=== PATIENT | male | born 1945 | race Caucasian/White ===

== ENCOUNTER 2019-04-08 06:33 | Inpatient (IN) | payer MEDICARE, OTHER ==
[2019-04-08] MEDS ORDERED: Albuterol/Ipratropium 3.0-0.5 MG/3 ML Neb Soln NEB ONE (06:55)
[2019-04-08 07:25] LABS: ANION GAP 17.1
[2019-04-08] MEDS ORDERED: methylPREDNISolone Sodium Succinate 125 MG/2 ML SDV IVPUSH ONE (07:25)
--- NOTE | 2019-04-08 07:33 | EDM.PDOC ---
ED HPI GENERAL MEDICAL PROBLEM - General Chief Complaint: Chest Pain Stated Complaint: CANT BREATHE Time Seen by Provider: 04/08/19 07:00 Source of Information: Reports: Patient, RN, RN Notes Reviewed History Limitations: Reports: No Limitations - History of Present Illness INITIAL COMMENTS - FREE TEXT/NARRATIVE: Pt presents to ER by POV with c/o progressively worsening shortness of breath with occasionally productive cough with thick white to yellow sputum. Pt states he felt feverish yesterday, but not currently. Pt is in [facility] from [place]. He is unsure of the specifics of his past medical history and has no idea of what medications he takes. Hx of multiple myeloma. Onset: Gradual Duration: Constant Location: Reports: Chest Severity: Moderate Improves with: Reports: None Worsens with: Reports: Other (Exertion) Associated Symptoms: Reports: No Other Symptoms Chest Pain Score (Numeric/FACES): 8 - Related Data Allergies Allergy/AdvReac Type Severity Reaction Status Date / Time No Known Allergies Allergy Verified 04/08/19 06:37 Past Medical History HEENT History: Reports: Cataract Cardiovascular History: Reports: None Respiratory History: Reports: COPD Genitourinary History: Reports: None Musculoskeletal History: Reports: None Neurological History: Reports: None Psychiatric History: Reports: None Endocrine/Metabolic History: Reports: Diabetes, Type II, Obesity/BMI 30+ Hematologic History: Reports: None Immunologic History: Reports: None Oncologic (Cancer) History: Reports: Other (See Below) Other Oncologic History: multiple melanoma Dermatologic History: Reports: Melanoma - Infectious Disease History Infectious Disease History: Reports: None - Past Surgical History Head Surgeries/Procedures: Reports: None GI Surgical History: Reports: Hernia, Abdominal Social & Family History - Family History Family Medical History: Noncontributory - Tobacco Use Smoking Status *Q: Former Smoker Used Tobacco, but Quit: Yes Month/Year Tobacco Last Used: 2008 - Caffeine Use Caffeine Use: Reports: Soda - Recreational Drug Use Recreational Drug Use: No - Living Situation & Occupation Occupation: Retired ED ROS GENERAL - Review of Systems Review Of Systems: ROS reveals no pertinent complaints other than HPI. ED EXAM, GENERAL - Physical Exam Exam: See Below Exam Limited By: No Limitations General Appearance: Alert, No Apparent Distress, Obese, Other (Chronically ill appearing) Eye Exam: Bilateral Eye: Normal Inspection Nose: Normal Inspection, Normal Mucosa, No Blood Throat/Mouth: Normal Inspection, Normal Lips, Normal Teeth, Normal Gums, Normal Oropharynx, Normal Voice, No Airway Compromise Head: Atraumatic, Normocephalic Neck: Normal Inspection, Supple, Non-Tender, Full Range of Motion Respiratory/Chest: No Respiratory Distress, No Accessory Muscle Use, Decreased Breath Sounds, Crackles, Wheezing. No: Rales, Rhonchi, Stridor Cardiovascular: Regular Rate, Rhythm, Tachycardia GI/Abdominal: Normal Bowel Sounds, Soft, Non-Tender, No Distention, Other ( Benign obese abdomen) Back Exam: Full Range of Motion, Other (Subacute appearing contusion at Rt thoracic back). No: CVA Tenderness (L), CVA Tenderness (R) Extremities: Normal Inspection, Normal Range of Motion, Non-Tender, Normal Capillary Refill, No Pedal Edema Neurological: Alert, Oriented, CN II-XII Intact, Normal Cognition, No Motor/ Sensory Deficits Psychiatric: Normal Affect, Normal Mood Skin Exam: Warm, Dry, Intact EKG INTERPRETATION EKG Date: 04/08/19 Time: 07:41 Rhythm: Other (Sinus tach) Rate (Beats/Min): 115 [place]: LAD-Left [place] Deviation P-Wave: Present QRS: Other (LAFB) ST-T: Normal QT: Prolonged (borderline) Comparison: NA - No Prior EKG EKG Interpretation Comments: No acute ischemic changes. Course - Vital Signs Last Recorded V/S: Last Vital Signs Temp 98.6 F 04/08/19 06:37 Pulse 115 H 04/08/19 07:05 Resp 24 H 04/08/19 06:37 BP 134/72 04/08/19 06:37 Pulse Ox 89 L 04/08/19 06:37 - Orders/Labs/Meds Orders: Active Orders 24 hr Category Date Time Status EKG 12 Lead [EKG Documentation Completion] [RC] STAT Care 04/08/19 07:36 Active RT Aerosol Therapy [RC] ASDIRECTED Care 04/08/19 06:56 Active B-TYPE NATRIURETIC PEPTIDE,BNP [CHEM] Stat Lab 04/08/19 06:46 Results CULTURE BLOOD [BC] Stat Lab 04/08/19 06:46 Received CULTURE BLOOD [BC] Stat Lab 04/08/19 07:21 Received TROPONIN I [CHEM] Stat Lab 04/08/19 06:46 Results Levofloxacin/Dextrose 5%-Water [Levaquin in D5W 750 MG/ Med 04/08/19 07:37 Active 150 ML] 750 mg Premix Bag 1 bag IV ONETIME Blood Culture x2 Reflex Set [OM.PC] Stat Oth 04/08/19 07:00 Ordered Medication Orders Levofloxacin/Dextrose 750 mg/ (Premix) 150 mls @ 100 mls/hr IV ONETIME ONE Stop: 04/08/19 09:06 Last Admin: 04/08/19 07:43 Dose: 100 mls/hr Labs: Laboratory Tests 04/08/19 04/08/19 04/08/19 Range/Units 06:46 06:46 06:46 WBC 2.2 L (5.0-10.0) 10^3/uL RBC 3.03 L (4.6-6.2) 10^6/uL Hgb 8.7 L (14.0-18.0) g/dL Hct 28.1 L (40.0-54.0) % MCV 92.7 (80-100) fL MCH 28.7 (27.0-34.0) pg MCHC 31.0 L (33.0-35.0) g/dL Plt Count 108 L (150-450) 10^3/uL Neut % (Auto) 54.8 (42.2-75.2) % Lymph % (Auto) 30.3 (20.5-50.1) % [place] % (Auto) 7.7 (2-8) % Eos % (Auto) 6.3 H (1.0-3.0) % Baso % (Auto) 0.9 (0.0-1.0) % Sodium 135 (135-145) mmol/L Potassium 4.1 (3.6-5.0) mmol/L Chloride 102 (101-111) mmol/L Carbon Dioxide 20.0 L (21.0-31.0) mmol/L Anion Gap 17.1 BUN 22 H (7-18) mg/dL Creatinine 1.3 (0.6-1.3) mg/dL Est Cr Clr Drug Dosing 48.02 mL/min Estimated GFR (MDRD) 54 BUN/Creatinine Ratio 16.92 Glucose 219 H (74-105) mg/dL Lactic Acid (0.5-2.2) mmol/L Calcium 8.6 (8.4-10.2) mg/dl Total Bilirubin 0.5 (0.2-1.0) mg/dL AST 14 (10-42) IU/L ALT 16 (10-60) IU/L Alkaline Phosphatase 100 (42-121) IU/L Troponin I < 0.02 (0.00-0.02) ng/ml Total Protein 7.4 (6.7-8.2) g/dl Albumin 3.4 (3.2-5.5) g/dl Globulin 4.0 Albumin/Globulin Ratio 0.85 // Range/Units 07:21 WBC (5.0-10.0) 10^3/uL RBC (4.6-6.2) 10^6/uL Hgb (14.0-18.0) g/dL Hct (40.0-54.0) % MCV (80-100) fL MCH (27.0-34.0) pg MCHC (33.0-35.0) g/dL Plt Count (150-450) 10^3/uL Neut % (Auto) (42.2-75.2) % Lymph % (Auto) (20.5-50.1) % [place] % (Auto) (2-8) % Eos % (Auto) (1.0-3.0) % Baso % (Auto) (0.0-1.0) % Sodium (135-145) mmol/L Potassium (3.6-5.0) mmol/L Chloride (101-111) mmol/L Carbon Dioxide (21.0-31.0) mmol/L Anion Gap BUN (7-18) mg/dL Creatinine (0.6-1.3) mg/dL Est Cr Clr Drug Dosing mL/min Estimated GFR (MDRD) BUN/Creatinine Ratio Glucose (74-105) mg/dL Lactic Acid 1.1 (0.5-2.2) mmol/L Calcium (8.4-10.2) mg/dl Total Bilirubin (0.2-1.0) mg/dL AST (10-42) IU/L ALT (10-60) IU/L Alkaline Phosphatase (42-121) IU/L Troponin I (0.00-0.02) ng/ml Total Protein (6.7-8.2) g/dl Albumin (3.2-5.5) g/dl Globulin Albumin/Globulin Ratio Meds: Medications Generic Name Dose Route Start Last Admin Trade Name Freq PRN Reason Stop Dose Admin Levofloxacin/Dextrose 750 mg/ 150 mls @ 100 mls/hr 04/08/19 07:37 04/08/19 07 :43 Premix IV 04/08/19 09:06 100 mls/hr ONETIME ONE Administration Discontinued Medications Generic Name Dose Route Start Last Admin Trade Name Freq PRN Reason Stop Dose Admin Albuterol/Ipratropium 3 ml 04/08/19 06:55 04/08/19 07:05 Duoneb 3.0-0.5 Mg/3 Ml NEB 04/08/19 06:56 3 ml ONETIME ONE Administration Methylprednisolone Sodium Succinate 125 mg 04/08/19 07:25 04/08/19 07:43 Solu-Medrol IVPUSH 04/08/19 07:26 125 mg ONETIME ONE Administration - Radiology Interpretation Free Text/Narrative:: XR Chest: 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 Coarse accentuation perihilar lung markings, lingular atelectasis/fibrosis or infiltrate per Rad. report. Departure - Departure Time of Disposition: 08:12 (admitted to Dr. Escobedo) Disposition: Admitted As Inpatient 67 Condition: Serious Clinical Impression: Acute exacerbation of chronic obstructive pulmonary disease (COPD), Pancytopenia due to chemotherapy, History of multiple myeloma - Discharge Information *PRESCRIPTION DRUG MONITORING PROGRAM REVIEWED*: No *COPY OF PRESCRIPTION DRUG MONITORING REPORT IN PATIENT MARIANO: No Forms: ED Department Discharge - My Orders Last 24 Hours: My Active Orders 04/08/19 06:46 B-TYPE NATRIURETIC PEPTIDE,BNP [CHEM] Stat CULTURE BLOOD [BC] Stat TROPONIN I [CHEM] Stat 04/08/19 06:56 RT Aerosol Therapy [RC] ASDIRECTED 04/08/19 07:00 Blood Culture x2 Reflex Set [OM.PC] Stat 04/08/19 07:21 CULTURE BLOOD [BC] Stat 04/08/19 07:36 EKG 12 Lead [EKG Documentation Completion] [RC] STAT 04/08/19 07:37 Levofloxacin/Dextrose 5%-Water [Levaquin in D5W 750 MG/150 ML] 750 mg Premix Bag 1 bag IV ONETIME - Assessment/Plan Last 24 Hours: My Active Orders 04/08/19 06:46 B-TYPE NATRIURETIC PEPTIDE,BNP [CHEM] Stat CULTURE BLOOD [BC] Stat TROPONIN I [CHEM] Stat 04/08/19 06:56 RT Aerosol Therapy [RC] ASDIRECTED 04/08/19 07:00 Blood Culture x2 Reflex Set [OM.PC] Stat 04/08/19 07:21 CULTURE BLOOD [BC] Stat 04/08/19 07:36 EKG 12 Lead [EKG Documentation Completion] [RC] STAT 04/08/19 07:37 Levofloxacin/Dextrose 5%-Water [Levaquin in D5W 750 MG/150 ML] 750 mg Premix Bag 1 bag IV ONETIME
[2019-04-08] MEDS ORDERED: Levofloxacin/Dextrose 5%-Water 750 MG in Premix Bag 1 BAG IV ONE (07:37)
--- NOTE | 2019-04-08 07:45 | CR ---
Clinical history: 73-year-old male spurring seen shortness of breath and chest pain. Elevated PSA and MRI prostate 2017. Interpretation: Abnormal. 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 Congenital? (No previous chest radiographs immediately available at [facility] or adjacent [facility]) Coarse accentuation perihilar lung markings, mild peribronchial "cuffing" and lingular atelectasis/fibrosis or infiltrate. Normal cardiac silhouette without cephalization of flow, alveolar edema or dependent pleural effusion i.e. no CHF. No lobar collapse. No parenchymal lung mass or hilar lymphadenopathy. No pneumothorax or free subdiaphragmatic air. CONCLUSION: Abnormal appearance right sixth rib, anteriorly. Bronchitis and lingular consolidation.
[2019-04-08] MEDS ORDERED: Albuterol/Ipratropium 3.0-0.5 MG/3 ML Neb Soln NEB PRN (09:29)
[2019-04-08] MEDS ORDERED: Docusate Sodium 100 MG Cap PO PRN (09:41)
[2019-04-08] MEDS ORDERED: Ondansetron 4 MG Tab.DIS PO PRN (09:41)
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
[2019-04-08] MEDS: Sodium Chloride 0.9% 10 ML Syringe FLUSH PRN ×2 (10:16→21:39)
[2019-04-08] MEDS: methylPREDNISolone Sodium Succinate 40 MG/1 ML SDV IVPUSH SCH ×3 (10:16→21:39)
[2019-04-08] MEDS ORDERED: Ibuprofen 600 MG Tab PO PRN (10:56)
[2019-04-08] MEDS ORDERED: Non-Formulary Medication 1 Each (Lenalidomide [Revlimid] 10 MG) PO SCH (11:00)
[2019-04-08] MEDS ORDERED: metFORMIN 500 MG Tab PO SCH (11:00)
[2019-04-08] MEDS: ACYCLOVIR 800 MG PO SCH ×2 (12:09→21:33)
[2019-04-08] MEDS: Ascorbic Acid 500 MG Tab PO SCH (12:10)
[2019-04-08] MEDS: Multivitamins,Therapeutic Tab PO SCH (12:10)
[2019-04-08] MEDS: guaiFENesin 600 MG Tab.ER PO SCH ×2 (12:10→21:32)
[2019-04-08] MEDS: Cholecalciferol (Vitamin D3) 1,000 Unit Tab PO SCH (12:10)
[2019-04-08] MEDS: Aspirin 81 MG Tab.EC PO SCH (12:10)
[2019-04-08] MEDS: Loratadine 10 MG Tab PO SCH (12:10)
[2019-04-08] MEDS: Insulin Lispro 100 Units/ML 3 ML Vial SUBCUT SCH ×3 (12:11→21:34)
[2019-04-08] MEDS: Albuterol/Ipratropium 3.0-0.5 MG/3 ML Neb Soln NEB SCH ×2 (14:08→17:48)
[2019-04-08] MEDS: Heparin Sodium 5,000 Units/ML Vial SUBCUT SCH ×2 (14:16→21:37)
[2019-04-08] MEDS: Budesonide 0.5 MG/2 ML Neb Susp NEB SCH (17:48)
[2019-04-08] MEDS: metFORMIN 500 MG Tab PO SCH (18:47)
[2019-04-08] MEDS ORDERED: Temazepam 15 MG Cap PO PRN (21:00)
[2019-04-09] MEDS: Albuterol/Ipratropium 3.0-0.5 MG/3 ML Neb Soln NEB SCH ×2 (00:45→07:13)
[2019-04-09] MEDS: Heparin Sodium 5,000 Units/ML Vial SUBCUT SCH (05:47)
[2019-04-09] MEDS: Sodium Chloride 0.9% 10 ML Syringe FLUSH PRN (05:48)
[2019-04-09] MEDS: methylPREDNISolone Sodium Succinate 40 MG/1 ML SDV IVPUSH SCH (05:48)
[2019-04-09 06:52] LABS: ANION GAP 17.2
[2019-04-09] MEDS: Budesonide 0.5 MG/2 ML Neb Susp NEB SCH (07:13)
[2019-04-09] MEDS ORDERED: metFORMIN 500 MG Tab PO SCH (08:00)
[2019-04-09] MEDS: Insulin Lispro 100 Units/ML 3 ML Vial SUBCUT SCH ×2 (08:19→11:42)
[2019-04-09] MEDS: metFORMIN 500 MG Tab PO SCH (08:21)
[2019-04-09] MEDS: ACYCLOVIR 800 MG PO SCH (08:21)
[2019-04-09] MEDS: Multivitamins,Therapeutic Tab PO SCH (08:22)
[2019-04-09] MEDS: Aspirin 81 MG Tab.EC PO SCH (08:22)
[2019-04-09] MEDS: Cholecalciferol (Vitamin D3) 1,000 Unit Tab PO SCH (08:22)
[2019-04-09] MEDS: guaiFENesin 600 MG Tab.ER PO SCH (08:22)
[2019-04-09] MEDS: Ascorbic Acid 500 MG Tab PO SCH (08:22)
[2019-04-09] MEDS: Loratadine 10 MG Tab PO SCH (08:22)
--- NOTE | 2019-04-09 10:51 | PCM.DCSUM1 ---
Discharge Summary - Hospital Course Free Text/Narrative:: 73-year-old with a history of diabetes, multiple myeloma, COPD. The patient presented with increasing shortness of breath, wheezing, subjective fever. Pneumonia, community-acquired Lingular infiltrate described on chest x-ray pending sputum culture, blood culture Treat empirically with levofloxacin Acute COPD exacerbation Treated with Pulmicort, scheduled and when necessary DuoNeb Started Solu-Medrol much improved will cont PO Prednisone resume symbicort, spiriva, ALbuterol PRN Diabetes resume metformin Multiple myeloma, anemia will follow with his PMD RODRIGO for a recheck - Sunday he feels his breathing has much improved, would like to be discharged Diagnosis: Stroke: No - Discharge Data Discharge Date: 04/09/19 Discharge Disposition: Home, Self-Care 01 Condition: Good - Discharge Diagnosis/Problem(s) (1) Pneumonia SNOMED Code(s): 581529111 ICD Code: J18.9 - PNEUMONIA, UNSPECIFIED ORGANISM Status: Acute Current Visit: Yes (2) Acute exacerbation of chronic obstructive pulmonary disease (COPD) SNOMED Code(s): 725459391 ICD Code: J44.1 - CHRONIC OBSTRUCTIVE PULMONARY DISEASE W (ACUTE) EXACERBATION Status: Acute Current Visit: No (3) History of multiple myeloma SNOMED Code(s): 450214929787340 ICD Code: Z85.79 - PRSNL HX OF MALIG NEOPLM OF LYMPHOID, HEMATPOETC & REL TISS Status: Acute Current Visit: No (4) Pancytopenia due to chemotherapy SNOMED Code(s): 4790704, 880836762 ICD Code: D61.810 - ANTINEOPLASTIC CHEMOTHERAPY INDUCED PANCYTOPENIA Status : Acute Current Visit: No - Patient Instructions Diet: Heart Healthy Diet, Diabetic Diet Activity: As Tolerated - Discharge Plan *PRESCRIPTION DRUG MONITORING PROGRAM REVIEWED*: Not Applicable *COPY OF PRESCRIPTION DRUG MONITORING REPORT IN PATIENT MARIANO: Not Applicable Prescriptions/Med Rec: Levofloxacin 500 mg PO DAILY #5 tablet predniSONE [Prednisone] 20 mg PO DAILY #5 tablet Home Medications: Home Meds Acyclovir [Zovirax] 800 mg PO BID 04/08/19 [History] Albuterol Sulfate [Albuterol Sulfate Hfa] 1 puff INH Q4HR PRN 04/08/19 [History] Ascorbic Acid [Vitamin C] 500 mg PO DAILY 04/08/19 [History] Aspirin [Halfprin] 81 mg PO DAILY 04/08/19 [History] Budesonide/Formoterol [Symbicort 160-4.5 MCG] 1 puff INH BID 04/08/19 [History] Cholecalciferol (Vitamin D3) [Vitamin D3] 1,000 units PO DAILY 04/08/19 [History ] Cyclobenzaprine HCl 10 mg PO Q8HR PRN 04/08/19 [History] Diclofenac Sodium [Voltaren 1% Gel] 4 g TOP Q8H PRN 04/08/19 [History] Ibuprofen 600 mg PO Q6H PRN 04/08/19 [History] Lenalidomide [Revlimid] 10 mg PO DAILY 04/08/19 [History] Loperamide HCl [Loperamide] 2 mg PO TID PRN 04/08/19 [History] Loratadine [Claritin] 10 mg PO DAILY 04/08/19 [History] Multivitamin [Daily Juan C] 1 tab PO DAILY 04/08/19 [History] [place]-3/DHA/Epa/Fish Oil [Fish Oil 1,000 mg Softgel] 1,000 mg PO BID 04/08/19 [ History] Prochlorperazine Maleate 10 mg PO Q6H PRN 04/08/19 [History] Tiotropium [Spiriva HandiHaler] 18 mcg INH DAILY 04/08/19 [History] dexAMETHasone [Dexamethasone] 40 mg PO WEEKLY 04/08/19 [History] guaiFENesin [Mucinex] 600 mg PO BID 04/08/19 [History] metFORMIN HCl [Metformin HCl] 1,000 mg PO BID 04/08/19 [History] Levofloxacin 500 mg PO DAILY #5 tablet 04/09/19 [Rx] predniSONE [Prednisone] 20 mg PO DAILY #5 tablet 04/09/19 [Rx] Referrals: Provider,Unknown [Ordering Only Provider] - ([facility]) - Discharge Summary/Plan Comment DC Time >30 min.: No - General Info Date of Service: 04/09/19 Functional Status: Reports: Pain Controlled, Tolerating Diet, Ambulating - Review of Systems General: Denies: Fever, Weakness, Malaise, Chills Pulmonary: Denies: Shortness of Breath, Wheezing Cardiovascular: Denies: Chest Pain, Edema Gastrointestinal: Denies: Abdominal Pain Neurological: Denies: Confusion - Patient Data Vitals - Most Recent: Last Vital Signs Temp 36.4 C 04/09/19 07:53 Pulse 85 04/09/19 07:53 Resp 22 H 04/09/19 07:53 BP 128/71 04/09/19 07:53 Pulse Ox 100 04/09/19 09:05 Weight - Most Recent: 95.436 kg I&O - Last 24 hours: Intake & Output 04/08/19 04/09/19 04/09/19 22:59 06:59 14:59 Intake Total 760 600 560 Output Total 300 Balance 760 300 560 Lab Results - Last 24 hrs: Laboratory Results - last 24 hr 04/08/19 04/08/19 04/08/19 Range/Units 11:38 16:56 21:04 WBC (5.0-10.0) 10^3/uL RBC (4.6-6.2) 10^6/uL Hgb (14.0-18.0) g/dL Hct (40.0-54.0) % MCV (80-100) fL MCH (27.0-34.0) pg MCHC (33.0-35.0) g/dL Plt Count (150-450) 10^3/uL Neut % (Auto) (42.2-75.2) % Lymph % (Auto) (20.5-50.1) % [place] % (Auto) (2-8) % Eos % (Auto) (1.0-3.0) % Baso % (Auto) (0.0-1.0) % Sodium (135-145) mmol/L Potassium (3.6-5.0) mmol/L Chloride (101-111) mmol/L Carbon Dioxide (21.0-31.0) mmol/L Anion Gap BUN (7-18) mg/dL Creatinine (0.6-1.3) mg/dL Est Cr Clr Drug Dosing mL/min Estimated GFR (MDRD) Glucose (74-105) mg/dL POC Glucose 406 H* 433 H* 329 H (83-110) mg/dl Calcium (8.4-10.2) mg/dl 04/09/19 04/09/19 04/09/19 Range/Units 05:50 05:50 07:42 WBC 1.2 L* (5.0-10.0) 10^3/uL RBC 2.67 L (4.6-6.2) 10^6/uL Hgb 7.6 L (14.0-18.0) g/dL Hct 24.3 L (40.0-54.0) % MCV 91.0 (80-100) fL MCH 28.5 (27.0-34.0) pg MCHC 31.3 L (33.0-35.0) g/dL Plt Count 115 L (150-450) 10^3/uL Neut % (Auto) 73.3 (42.2-75.2) % Lymph % (Auto) 20.0 L (20.5-50.1) % [place] % (Auto) 6.7 (2-8) % Eos % (Auto) 0.0 L (1.0-3.0) % Baso % (Auto) 0.0 (0.0-1.0) % Sodium 136 (135-145) mmol/L Potassium 4.2 (3.6-5.0) mmol/L Chloride 102 (101-111) mmol/L Carbon Dioxide 21.0 (21.0-31.0) mmol/L Anion Gap 17.2 BUN 28 H (7-18) mg/dL Creatinine 1.4 H (0.6-1.3) mg/dL Est Cr Clr Drug Dosing 44.59 mL/min Estimated GFR (MDRD) 50 Glucose 331 H (74-105) mg/dL POC Glucose 336 H (83-110) mg/dl Calcium 8.8 (8.4-10.2) mg/dl BRIAN Results - Last 24 hrs: Microbiology 04/08/19 07:21 Aerobic Blood Culture - Preliminary Blood - Venous - Lab Draw NO GROWTH AFTER 1 DAY Anaerobic Blood Culture - Preliminary NO GROWTH AFTER 1 DAY 04/08/19 06:46 Aerobic Blood Culture - Preliminary Blood - Venous NO GROWTH AFTER 1 DAY Anaerobic Blood Culture - Preliminary NO GROWTH AFTER 1 DAY 04/08/19 15:31 Gram Stain - Final Sputum - Expectorated Med Orders - Current: Current Medications Albuterol/Ipratropium (Duoneb 3.0-0.5 Mg/3 Ml) 3 ml NEB Q6HRRT [facility] Last Admin: 04/09/19 07:13 Dose: 3 ml Albuterol/Ipratropium (Duoneb 3.0-0.5 Mg/3 Ml) 3 ml NEB Q4HRRT PRN PRN Reason: sob Ascorbic Acid (Vitamin C) 500 mg PO DAILY [facility] Last Admin: 04/09/19 08:22 Dose: 500 mg Aspirin (Halfprin) 81 mg PO DAILY [facility] Last Admin: 04/09/19 08:22 Dose: 81 mg Budesonide (Pulmicort) 0.5 mg NEB BIDRT [facility] Last Admin: 04/09/19 07:13 Dose: 0.5 mg Cholecalciferol (Vitamin D3) 1,000 units PO DAILY [facility] Last Admin: 04/09/19 08:22 Dose: 1,000 units Docusate Sodium (Colace) 100 mg PO BID PRN PRN Reason: Constipation Guaifenesin (Mucinex) 600 mg PO BID [facility] Last Admin: 04/09/19 08:22 Dose: 600 mg Heparin Sodium (Porcine) (Heparin Sodium) 5,000 units SUBCUT Q8HR [facility] Last Admin: 04/09/19 05:47 Dose: 5,000 units Levofloxacin/Dextrose 750 mg/ (Premix) 150 mls @ 100 mls/hr IV Q24H [facility] Ibuprofen (Motrin) 600 mg PO Q6HR PRN PRN Reason: Pain (mild 1-3) Insulin Human Lispro (Humalog) 0 unit SUBCUT ACBED [facility]; Protocol Last Admin: 04/09/19 08:19 Dose: 8 units Loratadine (Claritin) 10 mg PO DAILY [facility] Last Admin: 04/09/19 08:22 Dose: 10 mg Metformin HCl (Glucophage) 1,000 mg PO BIDMEALS [facility] Last Admin: 04/09/19 08:21 Dose: 1,000 mg Methylprednisolone Sodium Succinate (Solu-Medrol) 40 mg IVPUSH Q8HR [facility] Last Admin: 04/09/19 05:48 Dose: 40 mg Multivitamins (Thera) 1 each PO DAILY [facility] Last Admin: 04/09/19 08:22 Dose: 1 each Acyclovir [Zovirax] (800 Mg Tab *Own Med*) 0 mg PO BID [facility] Last Admin: 04/09/19 08:21 Dose: 800 mg Ondansetron HCl (Zofran Odt) 4 mg PO Q4HR PRN PRN Reason: nausea, able to take PO Sodium Chloride (Saline Flush) 10 ml FLUSH ASDIRECTED PRN PRN Reason: Keep Vein Open Last Admin: 04/09/19 05:48 Dose: 10 ml Temazepam (Restoril) 15 mg PO BEDTIME PRN PRN Reason: Sleep Discontinued Medications Albuterol/Ipratropium (Duoneb 3.0-0.5 Mg/3 Ml) 3 ml NEB ONETIME ONE Stop: 04/08/19 06:56 Last Admin: 04/08/19 07:05 Dose: 3 ml Levofloxacin/Dextrose 750 mg/ (Premix) 150 mls @ 100 mls/hr IV ONETIME ONE Stop: 04/08/19 09:06 Last Infusion: 04/08/19 09:20 Dose: Infused Metformin HCl (Glucophage) 1,000 mg PO BID [facility] Last Admin: 04/08/19 12:11 Dose: 1,000 mg Metformin HCl (Glucophage) 1,000 mg PO BIDMEALS [facility]IR[facility] Methylprednisolone Sodium Succinate (Solu-Medrol) 125 mg IVPUSH ONETIME ONE Stop: 04/08/19 07:26 Last Admin: 04/08/19 07:43 Dose: 125 mg - Exam Quality Assessment: Denies: Supplemental Oxygen General: Reports: Alert, Oriented Lungs: Reports: Normal Respiratory Effort, Decreased Breath Sounds. Denies: Wheezing Cardiovascular: Reports: Regular Rate, Regular Rhythm GI/Abdominal Exam: Normal Bowel Sounds, Soft, Non-Tender, Other (obese) Extremities: No Pedal Edema, Other (left arm stitches) Wound/Incisions: Reports: Healing Well Neurological: Reports: No New Focal Deficit Psy/Mental Status: Reports: Alert, Normal Affect, Normal Mood
[2019-04-10] MEDS ORDERED: Levofloxacin/Dextrose 5%-Water 750 MG in Premix Bag 1 BAG IV SCH (06:00)
== END 2019-04-09 11:35 | disposition home or self-care (01) | DRG 193 ==
LOC: DL.ED 06:33 → UNDOADMIN 08:59 → DL.MS 08:59
PROVIDERS: ADMIT Internal Medicine; ATTEND Internal Medicine
DX: J18.9 Pneumonia, unspecified organism (principal); J44.1 Chronic obstructive pulmonary disease with (acute) exacerbation; J44.0 Chronic obstructive pulmonary disease with (acute) lower respiratory infection; D61.810 Antineoplastic chemotherapy induced pancytopenia; E11.9 Type 2 diabetes mellitus without complications; E66.9 Obesity, unspecified; Z79.82 Long term (current) use of aspirin; Z85.79 Personal history of other malignant neoplasms of lymphoid, hematopoietic and related tissues; C90.00 Multiple myeloma not having achieved remission; Z68.33 Body mass index [BMI] 33.0-33.9, adult; Z87.891 Personal history of nicotine dependence
CPT/HCPCS: 36415; 71046; 80048; 80053; 82962; 83605; 83880; 84484; 85025; 87040; 87070; 87205; 93005; 94640; 96365; 96375; 99285-25; A4217; A9270-GY; J1644; J1815; J1956; J2920; J2930; J7620-GY